=== PATIENT | male | born 1970 | race Caucasian/White ===

== ENCOUNTER 2018-05-01 11:04 | Emergency (ER) | payer OTHER ==
[~2018-05-01] VITALS: Ht 185.4 cm; Wt 90.7 kg
[2018-05-01 11:17] VITALS: BP 129/86
[2018-05-01 11:42] LABS: ABSOLUTE BASOPHIL COUNT 0.1 /CUMM (0.0-0.2); ABSOLUTE EOSINOPHIL COUNT 0.1 /CUMM (0.0-0.7); ABSOLUTE GRANULOCYTE CT 4.8 /CUMM (1.4-6.5); ABSOLUTE LYMPH COUNT 1.6 /CUMM (1.2-3.4); ABSOLUTE MONOCYTE COUNT 0.5 /CUMM (0.10-0.60); BASOPHIL % 0.9 % (0.0-2.0); EOSINOPHIL % 1.4 % (0-5); GRANULOCYTE % 67.9 % (42.2-75.2); HEMATOCRIT 44.9 % (42-52); MEAN CORPUSCULAR HGB 32.5 PG (27.0-31.0); MEAN CORPUSCULAR HGB CONC 34.2 G/DL (33.0-37.0); MEAN CORPUSCULAR VOLUME 94.8 FL (80.0-94.0); MEAN PLATELET VOLUME 9.5 FL (7.4-10.4); PLATELET COUNT 222 /CUMM (130-400); RBC DISTRIBUTION WIDTH 12.5 % (11.5-14.5); RED BLOOD CELL CT 4.74 /CUMM (4.70-6.10); WHITE BLOOD CELL COUNT 7.1 /CUMM (4.8-10.8)
[2018-05-01] MEDS ORDERED: DELTASONE20 MG PO (13:30)
[2018-05-01] MEDS ORDERED: DOXYCYCLINE HY100 M2 PO (13:30)
--- NOTE | 2018-05-01 13:30 | ED SKIN/ALLERGY COMPLAINT ---
History of Present Illness General Chief Complaint: Animal/Insect Bite Stated Complaint: SENT BY URGENT CARE FOR EVAL OF ? TICK BITE Source: patient Exam Limitations: no limitations Vital Signs & Intake/Output Vital Signs & Intake/Output Vital Signs Date Time Temp Pulse Resp B/P B/P Pulse O2 O2 Flow FiO2 Mean Ox Delivery Rate 05/01 1117 98.8 120 18 129/86 97 Room Air Allergies Coded Allergies: No Known Allergies (05/01/18) Reconcile Medications Doxycycline Hyclate 100 MG CAPSULE 1 CAP PO BID CELLULITIS Prednisone (Deltasone) 20 MG TABLET 1 TAB PO DAILY RASH Triage Note: 47 YO MALE TO TRIAGE FOR EVAL OF ?BITE TO R UPPER BACK. STATES HE NEVER DID SEE A BUG. STATES SITE HAS BEEN GETTING WORSE. Triage Nurses Notes Reviewed? yes Onset: Abrupt Duration: day(s):, constant Severity: moderate, severe HPI: 47-year-old male comes into the emergency room for rash to right shoulder extending down to right arm. He was sent in by the walk-in center. He denies any fever chills vomiting or flulike symptoms. No history of diabetes. Comes in for further evaluation. No tick bites that he is aware of. Started off smaller and has spread progressively. Past History Travel History Traveled to [place] past 21 day No Medical History Any Pertinent Medical History? see below for history Neurological: NONE EENT: NONE Cardiovascular: NONE Respiratory: NONE Gastrointestinal: NONE Hepatic: NONE Renal: NONE Musculoskeletal: NONE Psychiatric: NONE Endocrine: NONE Blood Disorders: NONE Cancer(s): NONE INFORMATION TECHNOLOGY INSTRUCTOR/Reproductive: NONE Surgical History Surgical History: non-contributory Psychosocial History What is your primary language Fijian Tobacco Use: Never used Family History Hx Contributory? No Review of Systems Review of Systems Constitutional: Reports: no symptoms. EENTM: Reports: no symptoms. Respiratory: Reports: no symptoms. Cardiovascular: Reports: no symptoms. GI: Reports: no symptoms. Genitourinary: Reports: no symptoms. Musculoskeletal: Reports: no symptoms. Skin: Reports: see HPI. Neurological/Psychological: Reports: no symptoms. Hematologic/Endocrine: Reports: no symptoms. Immunologic/Allergic: Reports: no symptoms. All Other Systems: Reviewed and Negative Physical Exam Physical Exam General Appearance: well developed/nourished, mild distress Head: atraumatic Eyes: Bilateral: normal appearance. Ears, Nose, Throat: normal ENT inspection, hearing grossly normal Neck: normal inspection Respiratory: no respiratory distress Back: normal inspection Neurologic/Psych: awake, alert, oriented x 3, normal mood/affect Skin: intact, rash Skin Problem Location: upper extremities Skin Problem Character: Large erythematous patch extending from right shoulder under right axilla down the right upper arm, hard to determine whether there is any central clearing but there appears to be a clearing below the axillary region, Progress Differential Diagnosis: abscess/cellulitis, allergic reaction, contact dermatitis, lyme disease, urticaria Plan of Care: Orders Procedure Date/time Status Add-on Test (ER Only) 05/01 1330 Active LYME TITRE 05/01 1119 Active LACTIC ACID 05/01 111 Complete C-REACTIVE PROTEIN 05/01 111 Complete COMPREHENSIVE METABOLIC PANEL 05/01 1119 Complete CBC WITHOUT DIFFERENTIAL 05/01 111 Complete Laboratory Tests 05/01/18 1122: Anion Gap 11, Estimated GFR > 60, BUN/Creatinine Ratio 14.4, Glucose 111 H, Lactic Acid 1.2, Calcium 9.7, Total Bilirubin 0.5, AST 28, ALT 36, Alkaline Phosphatase 86, C-Reactive Prot, Quant 1.0, Total Protein 7.2, Albumin 4.2, Globulin 3.0, Albumin/Globulin Ratio 1.4, CBC w Diff NO MAN DIFF REQ, RBC 4.74, MCV 94.8 H, MCH 32.5 H, MCHC 34.2, RDW 12.5, MPV 9.5, Gran % 67.9, Lymphocytes % 22.4, Monocytes % 7.4, Eosinophils % 1.4, Basophils % 0.9, Absolute Granulocytes 4.8, Absolute Lymphocytes 1.6, Absolute Monocytes 0.5, Absolute Eosinophils 0.1, Absolute Basophils 0.1 05/01/18 1119: Lyme Disease Antibody Pending Comments: 05/01/2018 1:40:54 PM Due to the location of the rash it is difficult to determine whether it's an erythema CHRONICUM migrans but it is concerning enough that the patient will be treated with doxycycline for 2 weeks. Lyme titer sent off. Could be allergy related so started on a low dose of prednisone. Afebrile. Normal blood work. Follow-up with PCP. Return if any other concerns worsening symptoms Departure Departure Disposition: HOME OR SELF CARE Condition: Stable Clinical Impression Primary Impression: Rash and nonspecific skin eruption Referrals: Danielito CENTENO,Michael Winslow (PCP/Family) Additional Instructions: Take doxycycline and prednisone as prescribed. Follow-up with your primary care doctor. Return if any concerns worsening symptoms. Please go over all results of today's visit with your primary care doctor. Contact your primary care doctor to let them know you were here in the emergency room. There may be nonspecific findings which may not be related to your visit today here in the emergency room but may require further evaluation and chronic monitoring by your primary care doctor. If you had a laceration today the chance of foreign body always remains. You should follow-up with your primary care doctor for recheck in 3-5 days for a wound check. If you had an x-ray done there is a chance that a fracture could have been missed on initial read and you should follow-up with your primary care doctor for repeat x-rays if symptoms persist. If your blood pressure was elevated here in the emergency room please have rechecked by [facility] primary care doctor within the next 48. If you were prescribed a narcotic here in the emergency room or any type of controlled substances you're not allowed to drive while taking this medication or operate any type of heavy machinery. Narcotics can make you feel lightheaded dizziness nausea and can cause constipation. You may need to picker tender helper a stool softener. Thank you for choosing [facility] emergency room. Please return to the emergency room immediately if you have any other concerns worsening of symptoms. Departure Forms: Customer Survey General Discharge Information Prescriptions: Current Visit Scripts Doxycycline Hyclate 1 CAP PO BID #28 CAP Prednisone (Deltasone) 1 TAB PO DAILY #5 TAB
== END 2018-05-01 13:39 ==
LOC: ERH 11:04
PROVIDERS: Physician Assistant Medical
DX: R21 Rash and other nonspecific skin eruption (principal)
CPT/HCPCS: 86618